=== PATIENT | male | born 1970 | race Caucasian/White ===

== ENCOUNTER 2025-03-01 03:11 | Emergency (ER) | payer MEDICAID, SELFPAY ==
[2025-03-01 03:13] VITALS: BMI 27.6
--- NOTE | 2025-03-01 03:21 | EDNOTE_ITS ---
ED Dental RME/HPI General Chief complaint: Dental/Oral/Throat Stated complaint: RIGHT LOWER TOOTHACHE Time Seen by Provider: 03/01/25 03:13 Arrival date/time: 03/01/25 03:11 This is a case of 55-year-old male who came into the emergency room due to right lower dental pain for today patient is unable to sleep due to pain no drooling of saliva no fever no chills Limitations: no limitations Related Data Previous Rx's ?Medication ?Instructions ?Recorded Hydrocodone/Acetaminophen * (NORCO 1 tab PO Q4H PRN se anastasia pain #20 07/09/15 10/325 *) tabs ibuprofen 600 mg tablet 600 mg PO Q6HR PRN PAIN #40 tabs 07/09/15 clindamycin HCl 150 mg capsule 150 mg PO Q6H #40 caps 03/01/25 tramadol 50 mg tablet 50 mg PO Q8H PRN pain #10 ta bs 03/01/25 Allergies Allergy/AdvReac Type Severity Reaction Status Date / Time No Known Drug Allergies Allergy Verified 03/01/25 03:13 Review of Systems Review of Systems Systems Reviewed: All systems reviewed, normal except as documented Constitutional Constitutional: Reports system reviewed and no additional complaints, except as documented and Denies headache(s) ENT Ears, Nose, Mouth, and Throat: Reports system reviewed and no additional complaints, except as documented, Reports as per HPI, Denies bleeding gums, Denies change in voice, Reports dental pain, Denies disequilibrium, Denies dizziness, Denies dry mouth, Denies dysphagia, Denies ear discharge, Denies otalgia, Denies epistaxis, Denies headache(s), Denies hearing loss, Denies hoarseness, Denies lip swelling, Denies mouth lesions, Denies mouth pain and Denies nasal congestion Cardiovascular Cardiovascular: Reports system reviewed and no additional complaints, except as documented Respiratory Respiratory: Reports system reviewed and no additional complaints, except as documented Gastrointestinal Gastrointestinal: Denies dysphagia Musculoskeletal Musculoskeletal: Reports system reviewed and no additional complaints, except as documented Neurologic Neurologic: Reports system reviewed and no additional complaints, except as documented, Denies disequilibrium, Denies dizziness and Denies headache(s) Allergic/Immunologic Allergic/Immunologic: Denies lip swelling ED Exam General Limitations: Present no limitations General appearance: Present alert and in no apparent distress Head Head exam: Present atraumatic Eye Eye exam: Present normal appearance, PERRL and EOMI ENT ENT exam: Present normal exam, normal oropharynx, mucous membranes moist, mucous membranes dry, TM's normal bilaterally and normal external ear exam Expanded ENT Exam Mouth exam: Present normal external inspection and tongue normal; Absent drooling, trismus, lip swelling, tongue elevation or tongue swelling Teeth exam: Present dental caries, fractured tooth #, dental tenderness # and other (Mild tenderness on tooth #[id number] with missing tooth and dental caries no dental abscess no gum abscess with mild swelling of the gum right lower dental); Absent gingival swelling Throat exam: Present normal inspection Neck Neck exam: Present normal inspection, full ROM and trachea midline Chest Chest inspection: Present normal inspection and symmetric chest wall rise Respiratory Respiratory exam: Present normal lung sounds bilaterally Cardiovascular Cardiovascular exam: Present regular rate, normal rhythm and normal heart sounds Abdominal Exam Abdominal exam: Present soft and normal bowel sounds Extremities Exam Extremities exam: Present normal inspection and full ROM Back Exam Back exam: Present normal inspection and full ROM Neurological Exam Neurological exam: Present alert, oriented X3 and CN II-XII intact Psychiatric Psychiatric exam: Present normal affect and normal mood Skin Skin exam: Present warm, dry, intact and normal color Course Quality Measures none Orders Category Date Time Status Ketorolac Inj [Toradol Inj] Med 03/01/25 03:18 Once 60 mg IM X1 ONE Vital Signs Vital signs: Oxygen saturation is normal Dental / Oral MDM Narrative MDM Narrative:: This is a case of 55-year-old male who came into the emergency room due to right lower dental pain for today patient is unable to sleep due to pain no drooling of saliva no fever no chills physical examination patient is awake alert oriented not in distress nontoxic looking patient noted to have mild tenderness on the right lower dental with dental caries missing tooth and tooth fracture no gum abscess but with mild swelling no dental abscess no drooling of saliva patient can speak full sentences I do not think patient is having Mark's angina patient was given Toradol per patient request to him to sleep tonight patient was discharged with tramadol and clindamycin for tooth infection patient was advised to see the dentist as soon as possible for a reevaluation and possible dental procedure patient will follow-up with PCP in 2 days for reevaluation and for any recurrence or worsening symptoms he will return the emergency room immediately or call 911 patient agreed with the treatment plan and discharge patient understood the discharge instruction patient is stable to be discharged with steady gait Patient data External records reviewed:: [facility] previous records Clinical information provided by:: patient Social determinants that could affect healthcare access:: none Patient has the following chronic illnesses:: No chronic illness How is presenting disease/condition affected by chronic disease/condition?: no chronic disease Evaluation data The following diagnostics were reviewed and interpreted by me:: other (specify) (Not indicated) Lab and/or radiology exams considered but not ordered:: None Interpretation Summary: None Medications / Prescriptions Medications or Prescriptions considered but not ordered:: Given Medication administrations:: Medication Administration History Ketorolac Tromethamine (Ketorolac Inj 60 Mg/2 Ml Vial) 60 mg IM X1 ONE Stop: 03/01/25 03:19 Given Consultations Consultation(s) initiated? (list below): No Diagnosis Dental Differential Diagnosis: gingival abscess, dental caries, toothache, dental abscess and fracture of tooth Most likely diagnosis given after review of the tests above:: None Admission Indicated Admission indicated?: not indicated Explain why admission is indicated or not indicated:: Not indicated Admission Request Was there a request for admission?: No Disposition Plan Disposition Plan: Discharge Discharge Attestation Discharge Attestation: The patient and all family members were given an opportunity to ask questions and understood the discharge instructions. Discharge instructions specifically effects, indications for sooner follow up or return to the emergency department, and the expected course of current diagnosis. Patient condition: Stable Discharge Plan Plan Patient Disposition: HOME (Self Care) Discharge Disposition comment: Stable Prescriptions/Referrals Prescriptions/Med Rec: New clindamycin HCl 150 mg capsule 150 mg PO Q6H Qty: 40 0RF tramadol 50 mg tablet 50 mg PO Q8H PRN (Reason: pain) Qty: 10 0RF No Action ibuprofen 600 MG tablet 600 mg PO Q6HR PRN (Reason: PAIN) Qty: 40 0RF Hydrocodone/Acetaminophen * (NORCO 10/325 *) 1 TAB tablet 1 tab PO Q4H PRN (Reason: severe pain) Qty: 20 0RF Problem List Clinical Impression: Infected tooth, Dental caries Patient/Caregiver Discharge Instructions Education Materials: ED Dental Cavity, ED Tooth Abscess Additional Instructions: Follow-up with your primary care physician in 2 days for evaluation for any worsening symptoms regardless of the symptoms or any emergent concern you need to return to the emergency room immediately or call [phone] it is important to see your dentist in 2 days for reevaluation and possible dental procedure Print Language: Syriac Stand Alone Forms: Nilsa Award Info., Patient Portal Info Letter PA/PRINT WASHER Supervising Physician PA/PRINT WASHER Supervising Physician: dr ryder
[2025-03-01 03:31] VITALS: BP 157/102; PULSE 97; RESP 18; TEMP 37.2; O2SAT 98
[2025-03-01] MEDS: HYDROcodone/APAP 5/325 TABLET 1 TAB PO (03:56)
== END 2025-03-01 03:59 | disposition home or self-care (01) ==
LOC: SERX 04:01
PROVIDERS: Emergency Provider Emergency Medicine; PCP Family Medicine
DX: K04.7 Periapical abscess without sinus (principal); K02.9 Dental caries, unspecified
CPT/HCPCS: 99283; A9270

== ENCOUNTER 2025-08-03 09:39 | Emergency (ER) | payer MEDICAID, SELFPAY ==
[2025-08-03 09:55] VITALS: BP 160/113; BP 188/107; PULSE 78; RESP 19; TEMP 36.8; O2SAT 97; BMI 26.9
--- NOTE | 2025-08-03 10:18 | EDNOTE_ITS ---
ED Animal Bite RME/HPI General Chief Complaint: Animal Bite Stated Complaint: SPIDER BITE LFA Time Seen by Provider: 08/03/25 10:08 Arrival date/time: 08/03/25 09:39 RME / HPI RME / HPI narrative: 55-year-old male presents to the ER complaining of left forearm bug bite which began last night. Denies fever, vomiting, diabetes, numbness, tingling, weakness. Related Data Previous Rx's ?Medication ?Instructions ?Recorded Hydrocodone/Acetaminophen * (NORCO 1 tab PO Q4H PRN se anastasia pain #20 07/09/15 10/325 *) tabs ibuprofen 600 mg tablet 600 mg PO Q6HR PRN PAIN #40 tabs 07/09/15 clindamycin HCl 150 mg capsule 150 mg PO Q6H #40 caps 03/01/25 tramadol 50 mg tablet 50 mg PO Q8H PRN pain #10 ta bs 03/01/25 cephalexin 500 mg capsule 500 mg PO QID 7 days #28 cap s 08/03/25 sulfamethoxazole 800 1 tab PO BID 7 days #14 tabs 08/03/25 mg-trimethoprim 160 mg tablet (Bactrim DS) Allergies Allergy/AdvReac Type Severity Reaction Status Date / Time No Known Drug Allergies Allergy Verified 08/03/25 09:41 Course Quality Measures none Orders Category Date Time Status Incision & Drainage set up ONCE Care 08/03/25 10:19 Active Lidocaine 1% W/Epi 1:100K 20Ml [Xylocaine 1% w/Epi 1: Med 08/03/25 10:19 Discontinued 100K 20 ml] 20 ml INFL X1 ONE Trimethoprim/Sulfa 160/800 Ds [Bactrim Ds] Med 08/03/25 12:28 Once 1 tab PO X1 ONE cephALEXin [Keflex] Med 08/03/25 12:28 Once 500 mg PO X1 ONE Vital Signs Vital signs: Vital Signs Temperature 98.3 F 08/03/25 09:55 Pulse Rate 78 08/03/25 09:55 Respiratory Rate 19 08/03/25 09:55 Blood Pressure 188/107 H 08/03/25 09:55 Pulse Oximetry (%) 97 08/03/25 09:55 Oxygen Delivery Method Room Air 08/03/25 09:55 PROCEDURES: Abscess I/D Site: upper extremity Side (if applicable): left Sedation/analgesia: none Local Anesthetic: lidocaine 1% and with epi Amount of anesthesia used (mL): 5 Technique: incised with #11 blade Amount of fluid expressed (mL): 2 Irrigation: No Packing used?: none Animal Bite MDM Narrative MDM Narrative:: MDM This patient?s soft tissue infection appears appropriate for outpatient management with close follow-up by a clinician within 24?48 hours. There are no signs of systemic toxicity, and a serious, rapidly progressive infection is unlikely based on presentation and exam. Doubt necrotizing fasciitis given lack of tenderness beyond erythema or crepitus, and doubt lymphangitis given lack of streaking. Incision and drainage was performed as indicated in the central most region of fluctuance. Antibiotics have been initiated, and response will be assessed at follow-up. The patient has been instructed on signs of acute progression and to return immediately if symptoms worsen or change. Although this patient's blood pressure was out of the normal range on evaluation today, the patient does not have clinical evidence of acute end-organ injury. The patient has been counseled on the risks of poorly or uncontrolled blood pressure and advised of the importance of close follow-up within the next 3-4 days to confirm that this blood pressure elevation is the result of a chronic hypertensive condition and to have it treated if so. The patient has also been counseled to return immediately if any further symptoms develop. I offered him blood pressure reduction medicine in the ER however given lack of symptoms and patient states he will take his BP medicine when he gets home. Patient data External records reviewed:: None Clinical information provided by:: patient Social determinants that could affect healthcare access:: none Patient has the following chronic illnesses:: Hypertension How is presenting disease/condition affected by chronic disease/condition?: exacerbated by Evaluation data The following diagnostics were reviewed and interpreted by me:: other (specify) Lab and/or radiology exams considered but not ordered:: Labs and radiology considered, but not ordered as they were not clinically indicated at this time. Interpretation Summary: None Medications / Prescriptions Medications or Prescriptions considered but not ordered:: I considered prescription management (both outpatient prescriptions AND drug treatment in the ER) and decided that this was necessary and was prescribed as charted. Medication administrations:: Medication Administration History Cephalexin HCl (Cephalexin 250 Mg Capsule) 500 mg PO X1 ONE Stop: 08/03/25 12:29 Trimethoprim/Sulfamethoxazole (Trimethoprim/Sulfa 160/800 Ds Tablet) 1 tab PO X1 ONE Stop: 08/03/25 12:29 Discontinued Medications Lidocaine/Epinephrine (Lidocaine 1% W/Epi 1:100k 20 Ml Vial) 20 ml INFL X1 ONE Stop: 08/03/25 10:20 Last Admin: 08/03/25 10:40 Dose: 20 ml Documented By: RANDALL Comments: USED BY PROVIDER As noted Consultations Consultation(s) initiated? (list below): No Diagnosis Differential diagnosis animal bite: other (Spider bite versus other insect bite resulting in abscess complicated by cellulitis) Most likely diagnosis given after review of the tests above:: Abscess complicated by cellulitis Admission Indicated Admission indicated?: not indicated Admission Request Was there a request for admission?: No Disposition Plan Disposition Plan: Discharge Discharge Attestation Discharge Attestation: The patient and all family members were given an opportunity to ask questions and understood the discharge instructions. Discharge instructions specifically effects, indications for sooner follow up or return to the emergency department, and the expected course of current diagnosis. Patient condition: Stable Discharge Plan Plan Patient Disposition: HOME (Self Care) Patient condition on transfer: Stable Prescriptions/Referrals Prescriptions/Med Rec: New sulfamethoxazole-trimethoprim [Bactrim DS] 800-160 mg tablet 1 tab PO BID 7 Days Qty: 14 0RF cephalexin 500 mg capsule 500 mg PO QID 7 Days Qty: 28 0RF No Action ibuprofen 600 MG tablet 600 mg PO Q6HR PRN (Reason: PAIN) Qty: 40 0RF Hydrocodone/Acetaminophen * (NORCO 10/325 *) 1 TAB tablet 1 tab PO Q4H PRN (Reason: severe pain) Qty: 20 0RF clindamycin HCl 150 mg capsule 150 mg PO Q6H Qty: 40 0RF tramadol 50 mg tablet 50 mg PO Q8H PRN (Reason: pain) Qty: 10 0RF Referrals: Pepito Pete MD [Primary Care Provider, Family Practice] - In 1 week Problem List Clinical Impression: Abscess Patient/Caregiver Discharge Instructions Education Materials: Abscess Drainage, ED Cellulitis Additional Instructions: Follow up with your primary medical doctor within 48 hours. Return to the Emergency Room immediately for any new, worsening, continuing symptoms or any concerns at all. Return to the Emergency Room within 48 hours if you are unable to follow up with your primary medical doctor within 48 hours. Print Language: Tristanian Stand Alone Forms: Nilsa Award Info., Patient Portal Info Letter PA/MEDICAL MALPRACTICE PARALEGAL Supervising Physician PA/MEDICAL MALPRACTICE PARALEGAL Supervising Physician: Dr. Diaz
[2025-08-03] MEDS: LIDOCAINE 1% W/EPI 1:100K 20 ML VIAL INFL (10:40)
[2025-08-03] MEDS: TRIMETHOPRIM/SULFA 160/800 DS TABLET 1 TAB PO (12:35)
== END 2025-08-03 12:56 | disposition home or self-care (01) ==
PROVIDERS: Emergency Provider Family Medicine; PCP Family Medicine
DX: T63.301A Toxic effect of unspecified spider venom, accidental (unintentional), initial encounter (principal); L02.414 Cutaneous abscess of left upper limb
CPT/HCPCS: 10060; 99284; J3490; A9270